=== PATIENT | female | born 1965 | race Caucasian/White ===

== ENCOUNTER 2019-04-14 14:41 | Emergency (ER) | payer SELFPAY ==
[~2019-04-14] VITALS: Ht 167.6 cm; Wt 54.4 kg
[2019-04-14 15:25] VITALS: BP 106/66
--- NOTE | 2019-04-14 16:11 | PHYS DOC ---
Past Medical History Past Medical History: No Pertinent History Past Surgical History: Other Additional Past Surgical Histo: ECTOPIC Alcohol Use: None Drug Use: None Adult General Chief Complaint Chief Complaint: WRIST PAIN HPI HPI Patient is a 53 year old female who presents with a fall on Saturday after she was trying to push a trash can with her foot. The patient fell on her right wrist and has been having tenderness since that time. She rates her pain 7 out of 10 in severity and sharp. Review of Systems Review of Systems Constitutional: Denies fever or chills [] Eyes: Denies change in visual acuity, redness, or eye pain [] HENT: Denies nasal congestion or sore throat [] Respiratory: Denies cough or shortness of breath [] Cardiovascular: No additional information not addressed in HPI [] GI: Denies abdominal pain, nausea, vomiting, bloody stools or diarrhea [] : Denies dysuria or hematuria [] Musculoskeletal: Reports R wrist pain. Integument: Denies rash or skin lesions [] Neurologic: Denies headache, focal weakness or sensory changes [] Endocrine: Denies polyuria or polydipsia [] Complete systems were reviewed and found to be within normal limits, except as documented in this note. Allergies Allergies Allergies Coded Allergies Type Severity Reaction Last Updated Verified No Known Drug Allergies 04/14/19 No Physical Exam Physical Exam Constitutional: Well developed, well nourished, no acute distress, non-toxic appearance. [] HENT: Normocephalic, atraumatic, bilateral external ears normal, oropharynx moist, no oral exudates, nose normal. [] Eyes: PERRLA, EOMI, conjunctiva normal, no discharge. [] Neck: Normal range of motion, no tenderness, supple, no stridor. [] Cardiovascular:Heart rate regular rhythm, no murmur [] Lungs & Thorax: Bilateral breath sounds clear to auscultation [] Abdomen: Bowel sounds normal, soft, no tenderness, no masses, no pulsatile masses. [] Skin: Warm, dry, no erythema, no rash. [] Back: No tenderness, no CVA tenderness. [] Extremities: Has snuff box tenderness to R wrist, tenderness to R wrist. Neurologic: Alert and oriented X 3, normal motor function, normal sensory function, no focal deficits noted. [] Psychologic: Affect normal, judgement normal, mood normal. [] Current Patient Data Vital Signs Vital Signs Date Time Temp Pulse Resp B/P (MAP) Pulse Ox O2 Delivery O2 Flow Rate FiO2 04/14/19 15:25 98.9 85 20 106/66 (79) 96 Room Air 98.9 EKG EKG [] Radiology/Procedures Radiology/Procedures [][facility] [address] [place] [address] IMAGING REPORT Signed PATIENT: ELAINE LUNDY ACCOUNT: [id number] : 1965 LOCATION: ER AGE: 53 SEX: F EXAM STATUS: REG ER ORD. PHYSICIAN: KEYSHA WHITE APRN REASON: fall, pain, tenderness,pt fell Sun landing on wrist,still having pain. PROCEDURE: WRIST 3V RIGHT Exam: Right wrist 3 views INDICATION: Fall, pain and tenderness TECHNIQUE: Frontal, lateral and oblique views of the right wrist Comparisons: None FINDINGS: There is mild osteopenia. No acute or healed fractures. Mild soft tissue swelling about the wrist. Joint spaces are well-maintained. IMPRESSION: Soft tissue swelling around the wrist without fracture identified. If the patient is having snuffbox tenderness recommend splinting and repeat imaging in 7-10 days to rule out an occult scaphoid injury. Electronically signed by: Naomi Mcdonnell MD (04/14/2019 4:10 PM) [facility] DICTATED and SIGNED BY: NAOMI MCDONNELL MD DATE: 04/14/19 1610 Course & Med Decision Making Course & Med Decision Making Pertinent Labs and Imaging studies reviewed. (See chart for details) Will get imaging. Will have splint placed due to snuff box tenderness. Nurse will place thumb spica with volar splint. Dragon Disclaimer Dragon Disclaimer This electronic medical record was generated, in whole or in part, using a voice recognition dictation system. Departure Departure Impression: Primary Impression: Acute wrist pain Disposition: 01 HOME, SELF-CARE Condition: STABLE Referrals: NO PCP (PCP) YESSENIA KRISHNA II, MD Patient Instructions: Scaphoid Fracture, Wrist Additional Instructions: Thank you for visiting [facility]. We appreciate you trusting us with your care. If any additional problems come up don't hesitate to return to visit us. Please follow up with your primary care provider so they can plan additional care if needed and know about the problem that you had. If symptoms worsen come back to the Emergency Department. Any concerning symptoms that start such as chest pain, shortness of air, weakness or numbness on one side of the body, running high fevers or any other concerning symptoms return to the ER. These wear splint and have the wrist re-x-rayed in 7-10 days out of concern for scaphoid fracture. Problem Qualifiers Primary Impression: Acute wrist pain Laterality: right Qualified Codes: M25.531 - Pain in right wrist KEYSHA WHITE APRN Apr 14, 2019 16:11
== END 2019-04-14 16:58 | disposition home or self-care (01) ==
LOC: ER 14:41
DX: M25.531 Pain in right wrist (principal); G89.11 Acute pain due to trauma; W18.39XA Other fall on same level, initial encounter; Y93.89 Activity, other specified; Y92.89 Other specified places as the place of occurrence of the external cause; Y99.8 Other external cause status
CPT/HCPCS: 29125; 73110; 99284

== ENCOUNTER 2019-05-08 06:56 | Emergency (ER) | payer SELFPAY ==
[~2019-05-08] VITALS: Ht 167.6 cm; Wt 49.9 kg
[2019-05-08 07:57] VITALS: BP 129/74
--- NOTE | 2019-05-08 08:06 | PHYS DOC ---
Past Medical History Past Medical History: Bipolar Past Surgical History: Other Additional Past Surgical Histo: ECTOPIC Smoking: Cigarettes Alcohol Use: None Drug Use: None Adult General Chief Complaint Chief Complaint: COUGH HPI HPI Patient is a 53 year old patient with history of bipolar and smoking who presents with feeling of cough and losing her voice. Patient states she has had cough for 3 weeks that getting productive with yellow sputum recently. Patient complaining of intermittent episodes of subjective fever and states she lost her voice for the last 7 or 8 days. Patient denies chest pain and shortness of breath, sick contact, vomiting and diarrhea, seeking medical attention previously. Review of Systems Review of Systems Constitutional: Reports subjective fever Eyes: Denies change in visual acuity, redness, or eye pain [] HENT: Denies nasal congestion, sore throat, hoarseness Respiratory: Denies shortness of breath, reports cough[] Cardiovascular: No additional information not addressed in HPI [] GI: Denies abdominal pain, nausea, vomiting, bloody stools or diarrhea [] : Denies dysuria or hematuria [] Musculoskeletal: Denies back pain or joint pain [] Integument: Denies rash or skin lesions [] Neurologic: Denies headache, focal weakness or sensory changes [] Endocrine: Denies polyuria or polydipsia [] All other systems were reviewed and found to be within normal limits, except as documented in this note. Current Medications Current Medications Current Medications Medications (Trade) Dose Ordered Sig/Titus Start Time Stop Time Status Last Admin Dose Admin Albuterol/ Ipratropium (Duoneb) 3 ml 1X ONCE 05/08/19 08:15 05/08/19 08:16 DC 05/08/19 08:15 3 ML Dexamethasone (Decadron) 10 mg 1X ONCE 05/08/19 08:15 05/08/19 08:16 DC Allergies Allergies Allergies Coded Allergies Type Severity Reaction Last Updated Verified No Known Drug Allergies 04/14/19 No Physical Exam Physical Exam Constitutional: Well nourished, mild distress, non-toxic appearance. [] HENT: Normocephalic, atraumatic, bilateral external ears normal, oropharynx moist, uvula edema and erythema, no oral exudates, nose normal, hoarseness. [] Eyes: PERRLA, EOMI, conjunctiva normal, no discharge. [] Neck: Normal range of motion, no tenderness, supple, no stridor. [] Cardiovascular:Heart rate regular rhythm, no murmur [] Lungs & Thorax: Bilateral breath sounds clear to auscultation [] Abdomen: Bowel sounds normal, soft, no tenderness, no masses, no pulsatile masses. [] Skin: Warm, dry, no erythema, no rash. [] Back: No tenderness, no CVA tenderness. [] Extremities: No tenderness, no cyanosis, no clubbing, ROM intact, no edema. [] Neurologic: Alert and oriented X 3, normal motor function, normal sensory function, no focal deficits noted. [] Psychologic: Affect anxious, judgement normal, mood normal. [] Current Patient Data Vital Signs Vital Signs Date Time Temp Pulse Resp B/P (MAP) Pulse Ox O2 Delivery O2 Flow Rate FiO2 05/08/19 08:16 96 Room Air 05/08/19 07:57 98.5 100 16 129/74 (92) 98.5 EKG EKG [] Radiology/Procedures Radiology/Procedures [] [address], [place] [id number] IMAGING REPORT Signed PATIENT: ELAINE LUNDY ACCOUNT: [id number] : 1965 LOCATION: ER AGE: 53 SEX: F EXAM STATUS: REG ER ORD. PHYSICIAN: NAIF JURADO MD REASON: cough PROCEDURE: CHEST PA & LATERAL PA and lateral views of the chest. Comparison: None. Indication: Cough Findings: The heart size is normal. No pneumothorax or effusion. No air space or interstitial disease. The bony structures are intact. Impression: 1. No acute cardiopulmonary process. Electronically signed by: Wilton Godinez MD (05/08/2019 8:18 AM) [facility] DICTATED and SIGNED BY: WILTON GODINEZ MD DATE: 05/08/19817 Course & Med Decision Making Course & Med Decision Making Pertinent Imaging studies reviewed. (See chart for details) Evaluation of patient in ER showed 53-year-old female patient with history of smoking Presents with complaining of urinary symptom and hoarseness for 3 weeks. Patient had unremarkable chest x-ray and vital signs. Plan discharge patient home with diagnosis of laryngitis and bronchitis and instruction to quit smoking. Dragon Disclaimer Dragon Disclaimer This electronic medical record was generated, in whole or in part, using a voice recognition dictation system. Departure Departure Impression: Primary Impression: Acute bronchitis Additional Impressions: Acute laryngitis Thoracic myofascial strain Tobacco abuse counseling Disposition: HOME, SELF-CARE (at 0 [phone]) Condition: IMPROVED Referrals: NO PCP (PCP) Patient Instructions: Acute Bronchitis, Smoking Cessation, Tips For Success, Thoracic Strain Additional Instructions: Drink plenty of liquids Follow-up with your primary care physician in 3-5 days Return to ER if not getting better Quit smoking Scripts Benzonatate (TESSALON PERLE) 100 Mg Capsule 1 CAP PO TID for cough, #21 CAP Prov: NAIF JURADO MD 05/08/19 Albuterol Sulfate (PROAIR HFA INHALER) 8.5 Gm Hfa.aer.ad 2 PUFF IH PRN Q4-6HRS PRN for wheezing for 21 Days, #1 INHALER 0 Refills Prov: NAIF JURADO MD 05/08/19 Methylprednisolone (MEDROL) 4 Mg Tab.ds.pk 1 PKG PO UD for inflammation, #1 PKG Prov: NAIF JURADO MD 05/08/19 Doxycycline Hyclate (DOXYCYCLINE HYCLATE) 100 Mg Capsule 1 CAP PO BID, #14 CAP Prov: NAIF JURADO MD 05/08/19 Baclofen (BACLOFEN) 10 Mg Tablet 1 TAB PO TID, #30 TAB 0 Refills Prov: NAIF JURADO MD 05/08/19 Problem Qualifiers Primary Impression: Acute bronchitis Bronchitis organism: unspecified organism Qualified Codes: J20.9 - Acute bronchitis, unspecified Additional Impressions: Thoracic myofascial strain Encounter type: sequela Qualified Codes: S29.019S - Strain of muscle and tendon of unspecified wall of thorax, sequela NAIF JURADO MD May 08, 2019 08:06
[2019-05-08] MEDS ORDERED: DEXAMETHASONE 4 MG TABLET PO ONE (08:15)
[2019-05-08] MEDS ORDERED: IPRATRPIUM/ALBUTEROL 0.5/2.5MG 3 ML NEBU. NEB ONE (08:15)
--- NOTE | 2019-05-08 08:21 | RAD ---
PA and lateral views of the chest. Comparison: None. Indication: Cough Findings: The heart size is normal. No pneumothorax or effusion. No air space or interstitial disease. The bony structures are intact. Impression: 1. No acute cardiopulmonary process. Electronically signed by: Wilton Najera MD (05/08/2019 8:18 AM) [facility]
[2019-05-08] MEDS ORDERED: DOXY100C2 PO (08:47)
[2019-05-08] MEDS ORDERED: BACL10TA PO (08:47)
[2019-05-08] MEDS ORDERED: METH4TAB2 PO (08:47)
[2019-05-08] MEDS ORDERED: BENZ100C PO (08:47)
[2019-05-08] MEDS ORDERED: ALBU2.5V8 IH (08:47)
== END 2019-05-08 09:07 | disposition home or self-care (01) ==
LOC: ER 06:56
DX: S29.019A Strain of muscle and tendon of unspecified wall of thorax, initial encounter (principal); J20.9 Acute bronchitis, unspecified; J04.0 Acute laryngitis; F31.9 Bipolar disorder, unspecified; F17.210 Nicotine dependence, cigarettes, uncomplicated; Z98.890 Other specified postprocedural states; X58.XXXA Exposure to other specified factors, initial encounter; Y93.89 Activity, other specified; Y92.89 Other specified places as the place of occurrence of the external cause; Y99.8 Other external cause status
CPT/HCPCS: 71046; 94640; 99284; J7620; J8540